=== PATIENT | male | born 1945 | race Caucasian/White ===

== ENCOUNTER 2016-09-18 16:46 | Emergency (ER) | payer OTHER, MEDICARE ==
[~2016-09-18] VITALS: Ht 182.9 cm; Wt 92.5 kg
[2016-09-18 16:49] VITALS: BP 130/80
--- NOTE | 2016-09-18 17:12 | ED MVC/FALL/TRAUMA COMPLAINT ---
History of Present Illness General Chief Complaint: Fall Stated Complaint: PT FELL AND HIT HIS HEAD AND HAS A BUMP Source: patient, old records Exam Limitations: no limitations Vital Signs & Intake/Output Vital Signs & Intake/Output Vital Signs Date Time Temp Pulse Resp B/P Pulse O2 O2 Flow FiO2 Ox Delivery Rate 09/18 1649 97.9 96 16 130/80 98 Room Air Allergies Uncoded Allergies: Allergy Other SEASONAL Med Allergies DENIES Triage Note: PT STATES THAT HE SLIPPED ON ICE AND FELL BACKWARDS HITTING THE BACK OF HIS HEAD, BUMP NOTED NO BLEEDING, DENIES LOC. DENIES THINNERS Triage Nurses Notes Reviewed? yes Onset: Abrupt Duration: hour(s): (2), better Timing: recent history Severity: mild Severity Numbers: 4 Injuries/Fall Location: head Method of Injury: fall Loss of Consciousness: no loss of consciousness No Modifying Factors: none Associated Symptoms: denies HPI: 71-year-old male with no medical history presents to emergency room for evaluation after he had a mechanical fall when he slipped on ice striking the back of his head on the sidewalk. The fall was from a standing height there was no loss of consciousness. The patient denies any other injury no neck back or arm or leg pain. His gave him Motrin prior to arrival with improvement in his symptoms currently is complaining of 4 out of 10 and aching pain to the posterior scalp. There are no modifying factors or associated symptoms otherwise no vision changes no change in his mental status per family no nausea no vomiting (JOHAN WILSON) Past History Travel History Traveled to [place] past 21 day No Medical History Any Pertinent Medical History? 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 No (JOHAN WILSON) Review of Systems Review of Systems Constitutional: Reports: see HPI. All Other Systems: Reviewed and Negative Comments Review of systems: See HPI, All other systems negative. Constitutional, no chills no fever, no malaise HEENT: No visual changes no sore throat no congestion Cardiovascular: No chest pain , no palpitation Skin,no rashes, no change in skin Respiratory: No dyspnea no cough no sputum GI: No nausea no vomiting, no diarrhea, : No dysuria No hematuria Muscle skeletal: No joint pain, no joint swelling, no back pain, no neck pain, Neurologic: No numbness no confusion, headache Psych: No stress Heme/endocrine: No bruising no bleeding Immunology: No lymphadenopathy (JOHAN WILSON) Physical Exam Physical Exam General Appearance: well developed/nourished, no apparent distress, alert, awake Comments: Well-developed well-nourished person in no acute distress HEENT: Normal EENT exam; PERRL, EOMI, no nystagmus. There is a small 2 cm posterior scalp hematoma. moist mucous membranes. Neck: Supple, no midline or paracervical tenderness normal range of motion without pain or tenderness Back: Nontender, no CVA tenderness. Full range of motion Cardiovascular: Regular rate and rhythms no murmurs rubs Respiratory: Chest nontender.There were no bony deformities, no asymmetry. No respiratory distress. Patient speaking in full complete sentences. Breath sounds clear to auscultation bilaterally: NO W/R/R Abdomen: Soft, nontender nondistended, Extremity: No edema, the extremity are atraumatic full range of motion of extremities, normal and equal pulses bilaterally, 5 out of 5 strength noted to bilateral upper and lower extremities Neuro: Alert oriented x3, motor sensory normal, cranial nerves II through XII grossly intact. There were no obvious focal neurologic abnormalities. Skin: No appreciable rash on exposed skin, skin is warm and dry. Psych: Mood and affect is normal, memory and judgment is normal. Core Measures ACS in differential dx? No Severe Sepsis Present: No Septic Shock Present: No (JOHAN WILSON) Progress Differential Diagnosis: C/T/L spine injury, ext injury, ICH, pelvis injury, spinal cord injury Plan of Care: CAT scan ordered patient declining anything for pain when offered i discussed with the patient and his family his CAT scan results need for supportive care ice and Tylenol Motrin as needed patient is again declining anything for pain offered advise close follow-up with his primary care physician , return anytime sooner if any concerns they feel comfortable this plan patient is ambulatory with steady gait upon discharge Diagnostic Imaging: Viewed by Me: CT Scan. Discussed w/RAD: CT Scan. Radiology Impression: PATIENT: TRAMONTANA,SHY PRESENT AGE: 71 PATIENT ACCOUNT NO: [id number] : 46 LOCATION: [facility] ORDERING PHYSICIAN: JOHAN MORENO SERVICE DATE: 09/18/16-1718 EXAM TYPE: CAT - CT HEAD WO IV CONTRAST EXAMINATION: CT HEAD WITHOUT CONTRAST CLINICAL INFORMATION: Fall. Hit head. COMPARISON: None. TECHNIQUE: Contiguous axial imaging was performed from the skull base to vertex without intravenous administration of contrast. DLP: 600.71 mGy-cm. FINDINGS: There is no evidence of acute intracranial hemorrhage or territorial infarction. No abnormal mass effect or midline shift is seen. Gerard to white matter differentiation is well preserved. No extra-axial fluid collections are identified. There is vascular calcification of the internal carotid arteries at the carotid artery siphon bilaterally. The ventricles are normal in size. There is no abnormal attenuation within the brain parenchyma. The osseous structures and soft tissues are normal. Scattered mucosal thickening in the ethmoid sinuses bilaterally. The mastoid air cells and the middle ear cavities are normally aerated. IMPRESSION: No acute intracranial pathology. DICTATED BY: NERISSA DEVLIN MD DATE/TIME DICTATED:09/18/161741 HEALTH SERVICES MANAGER:PEDRITO DATE/TIME TRANSCRIBED:09/18/161741 CONFIDENTIAL, DO NOT COPY WITHOUT APPROPRIATE AUTHORIZATION. <Electronically signed in Other Vendor System> SIGNED BY: NERISSA DEVLIN MD 09/18/161746 (JOHAN WILSON) Departure Departure Time of Disposition: 1754 Disposition: HOME OR SELF CARE Condition: Stable Clinical Impression Primary Impression: Minor head injury without loss of consciousness Secondary Impressions: Scalp hematoma Referrals: FABIOLA JETER MD (PCP/Family) Additional Instructions: Rest, ice as needed Tylenol Motrin as needed for pain. Follow-up with your primary care physician, return with any concerns Departure Forms: Customer Survey General Discharge Information (JOHAN WILSON) PA/DIRECT[employer]ET[employer] Co-Sign Statement Statement: ED Attending supervision documentation- [X] I saw and evaluated the patient. I have also reviewed all the pertinent lab results and diagnostic results. I agree with the findings and the plan of care as documented in the PA's/[employer]'s documentation. [] I have reviewed the ED Record and agree with the PA's/[employer]'s documentation. [] Additions or exceptions (if any) to the PAs/[employer]'s note and plan are summarized below: [] (HORTENCIA CHRISTIE,MARIO Jett)
--- NOTE | 2016-09-18 17:47 | CT SCAN REPORT ---
EXAMINATION: CT HEAD WITHOUT CONTRAST CLINICAL INFORMATION: Fall. Hit head. COMPARISON: None. TECHNIQUE: Contiguous axial imaging was performed from the skull base to vertex without intravenous administration of contrast. DLP: 600.71 mGy-cm. FINDINGS: There is no evidence of acute intracranial hemorrhage or territorial infarction. No abnormal mass effect or midline shift is seen. Gerard to white matter differentiation is well preserved. No extra-axial fluid collections are identified. There is vascular calcification of the internal carotid arteries at the carotid artery siphon bilaterally. The ventricles are normal in size. There is no abnormal attenuation within the brain parenchyma. The osseous structures and soft tissues are normal. Scattered mucosal thickening in the ethmoid sinuses bilaterally. The mastoid air cells and the middle ear cavities are normally aerated. IMPRESSION: No acute intracranial pathology.
== END 2016-09-18 18:08 ==
LOC: ERH 16:46
DX: S09.90XA Unspecified injury of head, initial encounter (principal); S00.03XA Contusion of scalp, initial encounter; W00.0XXA Fall on same level due to ice and snow, initial encounter

== ENCOUNTER 2017-02-25 19:12 | Emergency (ER) | payer OTHER, MEDICARE ==
[~2017-02-25] VITALS: Ht 182.9 cm; Wt 88.5 kg
[2017-02-25 19:23] VITALS: BP 163/77
[2017-02-25] MEDS ORDERED: MULTI-DAY VITA1 EACH PO (20:31)
--- NOTE | 2017-02-25 20:55 | ED THROAT/DENTAL COMPLAINT ---
History of Present Illness General Chief Complaint: General Adult Stated Complaint: PT HAS A LITTLE BUMP ON THE LT SIDE OF NECK Source: patient, family, old records Exam Limitations: no limitations Vital Signs & Intake/Output Vital Signs & Intake/Output Vital Signs Date Time Temp Pulse Resp B/P B/P Pulse O2 O2 Flow FiO2 Mean Ox Delivery Rate 02/26 2024 Room Air 02/253 97.6 74 16 163/77 97 Room Air ED Intake and Output 02/26 0000 02/25 1200 Intake Total Output Total Balance Patient 88.451 kg Weight Weight Reported by Patient Measurement Method Allergies Coded Allergies: No Known Allergies (02/25/17) Reconcile Medications Multivitamin (Multi-Day Vitamins) 1 EACH TABLET 1 TAB PO DAILY SUPPLEMENT ( Reported) Triage Note: PT HAS SWOLLEN AREA TO LEFT NECK. PT STATES HE NOTICED IT WHILE AT [employer]. Triage Nurses Notes Reviewed? yes HPI: 71M no PMH presenting with a lump on the left side of his neck that his noticed earlier today. It is not painful and mobile, located on the left posterior of his neck. He denies headache, fever, chills, cough, vision changes , lightheadedness, sore throat, dysphagia, dysphonia, difficulty breathing, chest pain, abdominal pain, diarrhea, dysuria. No recent infectious symptoms. Past History Travel History Traveled to [place] past 21 day No Medical History Any Pertinent Medical History? 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 No Review of Systems Review of Systems Constitutional: Reports: no symptoms. EENTM: Reports: see HPI. Respiratory: Reports: no symptoms. Cardiovascular: Reports: no symptoms. GI: Reports: no symptoms. Genitourinary: Reports: no symptoms. Musculoskeletal: Reports: no symptoms. Skin: Reports: no symptoms. Neurological/Psychological: Reports: no symptoms. Hematologic/Endocrine: Reports: no symptoms. Immunologic/Allergic: Reports: no symptoms. All Other Systems: Reviewed and Negative Physical Exam Physical Exam General Appearance: well developed/nourished, no apparent distress, alert, awake , comfortable Head: atraumatic, normal appearance Eyes: Bilateral: normal appearance. Nose: normal inspection Mouth/Throat: normal mouth inspection, pharynx normal Neck: 1cm soft, non-tender, mobile nodule present at left posterior neck with no overlying erythema or drainage Cardiovascular/Respiratory: normal breath sounds, regular rate/rhythm Back: normal inspection Neurologic/Psych: no motor/sensory deficits Core Measures ACS in differential dx? No Severe Sepsis Present: No Septic Shock Present: No Progress Differential Diagnosis: aspirated tooth, carious tooth, epiglottitis, Ludwigs angina, meningitis, odontogenic abscess, nagi-tonsillar abscess, pharyngeal for. body, stomatitis/gingivitis, strep pharyngitis, tooth fracture Plan of Care: Suspect lymphadenopathy with no evidence of infection or airway compromise. Can follow up with PCP. No imaging required as low suspicion for abscess or malignancy at this time. Departure Departure Time of Disposition: 2053 Disposition: HOME OR SELF CARE Condition: Stable Clinical Impression Primary Impression: Posterior cervical adenopathy Referrals: FABIOLA JETER MD (PCP/Family) Departure Forms: Customer Survey General Discharge Information
== END 2017-02-25 20:59 ==
LOC: ERH 19:12
DX: R59.0 Localized enlarged lymph nodes (principal)